=== PATIENT | female | born 1945 | race Caucasian/White ===

== ENCOUNTER 2017-10-13 20:05 | Emergency (ER) | payer MEDICARE ==
[~2017-10-13] VITALS: Ht 167.6 cm; Wt 90.7 kg
[2017-10-13] MEDS ORDERED: HYDROCODONE/APAP 10MG-325MG TAB PO ONE (21:15)
--- NOTE | 2017-10-13 21:27 | Diagnostic Imaging Report ---
KNEE RIGHT THREE VIEWS HISTORY: Status post fall COMPARISON: None FINDINGS: Bones: No displaced fracture. Osseous alignment is within normal limits. Joints: Mild degenerative changes of the right knee involving predominantly the lateral compartment Soft tissues: Small suprapatellar joint effusion is present. IMPRESSION: 1. No acute osseous abnormality. 2. Small suprapatellar joint effusion. Signed by: Dr. Narendra Rivas M.D. on 10/13/2017 9:23 PM
--- NOTE | 2017-10-13 21:27 | Diagnostic Imaging Report ---
SHOULDER RIGHT COMPLETE HISTORY: Status post fall on right shoulder. COMPARISON: None FINDINGS: Bones: Acute, comminuted, predominantly a spiral fracture of the proximal right humeral diaphysis without intra-articular component. Osseous alignment is within normal limits. Joints: The joint spaces are well-maintained. Soft tissues: The soft tissues appear unremarkable. IMPRESSION: Acute, comminuted, spiral fracture of the proximal right humeral diaphysis without articular component. Signed by: Dr. Narendra Rivas M.D. on 10/13/2017 9:24 PM
--- NOTE | 2017-10-13 21:28 | Diagnostic Imaging Report ---
EXAMINATION: CHEST SINGLE (NOT PORTABLE) INDICATION: Status post fall on right shoulder. COMPARISON: None FINDINGS: TUBES and LINES: None. LUNGS: Lungs are well inflated. Lungs are clear. There is no evidence of pneumonia or pulmonary edema. PLEURA: No pleural effusion or pneumothorax. HEART AND MEDIASTINUM: The cardiomediastinal silhouette is unremarkable. BONES AND SOFT TISSUES: Partially visualized spiral comminuted fracture of the right proximal humerus without joint involvement. Soft tissues are unremarkable. UPPER ABDOMEN: No free air under the diaphragm. IMPRESSION: 1. No acute thoracic abnormality. 2. Acute, spiral fracture of the right proximal humerus Signed by: Dr. Narendra Rivas M.D. on 10/13/2017 9:24 PM
[2017-10-13] MEDS ORDERED: KETOROLAC TROMETHAMINE 60 MG/2 ML VIAL IM ONE (21:30)
--- NOTE | 2017-10-13 21:47 | Diagnostic Imaging Report ---
History:Fall Comparison studies:None Technique: Axial images were obtained from the skull base to the vertex. Coronal and sagittal images reconstructed from the axial data. Intravenous contrast: None Findings: Scalp/skull: No abnormalities. Extra-axial spaces: No masses. No fluid collections. Brain sulci: Mildly prominent. Ventricles: Mild compensatory dilatation. No hydrocephalus. Parenchyma: Subtle hypodensities in the supratentorial white matter are small vessel ischemic changes. No masses, hemorrhage, acute or chronic cortical vascular insults. Sellar/suprasellar region: No abnormalities. Craniocervical junction: Patent foramen magnum. No Chiari one malformation. Incidental findings: Atherosclerotic calcifications in the carotid siphons . Impression: No acute abnormalities. Chronic findings: 1. Mild generalized volume loss. 2. Mild supratentorial white matter small vessel ischemic changes. Signed by: Dr. Asif Giordano M.D. on 10/13/2017 9:44 PM
== END 2017-10-13 22:44 | disposition home or self-care (01) ==
LOC: ER 20:05
DX: S00.83XA Contusion of other part of head, initial encounter (principal); S42.341A Displaced spiral fracture of shaft of humerus, right arm, initial encounter for closed fracture; M25.561 Pain in right knee; W01.0XXA Fall on same level from slipping, tripping and stumbling without subsequent striking against object, initial encounter; Y93.01 Activity, walking, marching and hiking; Y92.008 Other place in unspecified non-institutional (private) residence as the place of occurrence of the external cause; K21.9 Gastro-esophageal reflux disease without esophagitis; J44.9 Chronic obstructive pulmonary disease, unspecified
CPT/HCPCS: 29105; 70450; 71045; 73030; 73562; 99283; J1885